=== PATIENT | female | born 1990 | race Caucasian/White ===

== ENCOUNTER 2020-12-13 17:49 | Outpatient (CLI) | payer OTHER, SELFPAY ==
[2020-12-13 18:41] LABS: Alanine Aminotransferase 20 U/L (4-35); Alkaline Phosphatase 117 U/L (38-126); Anion Gap 6 mmol/L (8-16); Aspartate Amino Transferase 31 U/L (14-36); Bilirubin,Total 0.1 mg/dL (0.2-1.3); Blood Urea Nitrogen 12 mg/dL (7-17); Calcium 9.6 mg/dL (8.4-10.2); Carbon Dioxide 25 mmol/L (22-30); Chloride 107 mmol/L (98-107); Estimated Glomerular Filt Rate > 60; Glucose 77 mg/dL (65-105); Sodium 138 mmol/L (137-145)
[2020-12-20 12:33] LABS: Chenodeoxycholic Acid 1.5 umol/L (< OR = 3.9); Cholic Acid 1.2 umol/L (< OR = 2.8); Deoxycholic Acid 1.6 umol/L (< OR = 2.3); Total Bile Acids 4.3 umol/L (< OR = 8.3)
== END 2020-12-13 17:50 | disposition home or self-care (01) ==
LOC: ANHLAB 17:54
PROVIDERS: Visit Provider Obstetrics & Gynecology
DX: O26.619 Liver and biliary tract disorders in pregnancy, unspecified trimester (principal); Z3A.00 Weeks of gestation of pregnancy not specified
CPT/HCPCS: 36415; 80053; 82542

== ENCOUNTER 2021-02-28 18:13 | Observation (INO) | payer OTHER, MEDICAID, SELFPAY ==
[2021-02-28 18:40] VITALS: BMI 24.0
--- NOTE | 2021-02-28 19:38 | OBADM ---
This patient, Cleopatra Joe, admitted to the OB room Labor/Delivery/Recovery 103 for observation. Patient/family oriented to hospital policies and general routines including ID bracelet, bed and alarms, visiting hours, pain management, procedures, bathroom and other care routines, personal items, smoking policy, room service/diet, and visiting hours. Patient/Family are encouraged to report perceived risks to care and to ask questions if they do not understand what they are told or what they should do.
--- NOTE | 2021-02-28 20:02 | PC.NURSE ---
1902 - Dr Lew notified of maternal/ status; negative ROMplus, closed/thick/high, 1 variable, 3 contractions with irritability, and reactive tracing. Orders to d/c pt home. 1904 - FHT 135 with moderate variability noted. 1 variable noted. 3 contractions noted with irritability. Abdomen soft to palpation.
--- NOTE | 2021-03-21 20:16 | PM.OBTRLD ---
OB - Triage/Final Diagnosis Visit Information Comments/Additional reasons for admission: I have assessed the risk for this patient, Cleopatra Joe, and determined that she would benefit from observation care. Final Diagnosis (1) Vaginal discharge during in third trimester: Code(s): O26.893 - Other specified related conditions, third trimester; N89.8 - Other specified noninflammatory disorders of vagina Status: Acute
== END 2021-02-28 19:29 | disposition home or self-care (01) ==
PROVIDERS: Admitting Provider Obstetrics & Gynecology; Visit Provider Obstetrics & Gynecology
DX: O26.893 Other specified pregnancy related conditions, third trimester (principal); N89.8 Other specified noninflammatory disorders of vagina; Z3A.37 37 weeks gestation of pregnancy
CPT/HCPCS: G0378; G0379

== ENCOUNTER 2021-03-09 13:32 | Outpatient (CLI) | payer OTHER, MEDICAID, SELFPAY ==
--- NOTE | 2021-03-09 13:32 | OBADM ---
This patient, Cleopatra Joe, admitted to the OB room OB Post 116 for observation. Patient/family oriented to hospital policies and general routines including ID bracelet, bed and alarms, visiting hours, pain management, procedures, bathroom and other care routines, personal items, smoking policy, room service/diet, and visiting hours. Patient/Family are encouraged to report perceived risks to care and to ask questions if they do not understand what they are told or what they should do.
--- NOTE | 2021-03-09 13:52 | PC.NURSE ---
called Meli CNM reported pt admission for decreased movement, occasional headache, swelling on legs and hands. pt states headaches are only occasional and did not required medication. no swelling on legs or hands at this time.denies epigastric pain or short of breath. order received for HIP evaluation lab.
[2021-03-09 14:15] VITALS: BP 106/72; PULSE 84
[2021-03-09 14:22] LABS: Basophils Absolute Auto 0.1 K/mm3 (0.0-0.1); Basophils Percent Auto 0.4 % (0.2-1.2); Eosinophils Absolute Auto 0.1 K/mm3 (0-0.3); Hematocrit 32.5 % (37.0-47.0); Hemoglobin 10.9 g/dL (12.0-15.0); Immature Granulocyte Absolute 0.17 K/mm3 (0.00-0.031); Immature Granulocyte Percent A 1.4 % (0-0.5); Lymphocytes Absolute Auto 1.34 K/mm3 (0.9-3.2); Lymphocytes Percent Auto 10.9 % (18.3-44.2); Mean Corpuscular HGB Conc 33.5 g/dl (32-36); Mean Corpuscular Hemoglobin 32.2 pg (26-34); Mean Corpuscular Volume 95.9 fl (80-100); Mean Platelet Volume 11.1 fl (7.4-10.4); Monocytes Absolute Auto 1.1 K/mm3 (0.1-0.6); Monocytes Percent Auto 8.8 % (2.6-8.5); Neutrophils Absolute Auto 9.5 K/mm3 (1.3-6.7); Neutrophils Percent Auto 77.5 % (45.5-73.1); Platelet Count Result 143 k/mm3 (150-375); Red Blood Count 3.39 M/mm3 (4.2-5.4); White Blood Count 12.3 K/mm3 (4.5-10.0)
[2021-03-09 14:30] VITALS: BP 107/70; PULSE 81
[2021-03-09 14:32] LABS: Add Urine Microscopic? YES; Appearance Urine Cloudy (Clear); Bacteria Urine 2+ /hpf; Bilirubin Urine Negative (Negative); Blood Urine Negative (Negative); Color Urine Yellow (Yellow); Glucose Urine UA Negative (Negative); Ketones Urine Negative (Negative); Leukocyte Esterase Ur 3+ LEU/UL (NEGATIVE); Nitrate Urine Negative (Negative); Protein Urine Negative (Negative); Squamous Epithelial Cell Urine Many /hpf (Few); Total Protein Urine Random 17 mg/dL; Ur Ttl Prot Creatinine Ratio 0.85 mg/mg (0-0.20); Urobilinogen Urine Negative mg/dL (<2.0); WBC Urine 31-50 /hpf (0-3)
[2021-03-09 14:35] LABS: Alanine Aminotransferase 14 U/L (4-35); Albumin Level 3.4 g/dL (3.5-5.1); Alkaline Phosphatase 244 U/L (38-126); Anion Gap 6 mmol/L (8-16); Aspartate Amino Transferase 30 U/L (14-36); Bilirubin,Total < 0.1 mg/dL (0.2-1.3); Blood Urea Nitrogen 8 mg/dL (7-17); Calcium 9.5 mg/dL (8.4-10.2); Carbon Dioxide 22 mmol/L (22-30); Chloride 102 mmol/L (98-107); Estimated Glomerular Filt Rate > 60; Glucose 96 mg/dL (65-110); Potassium 3.6 mmol/L (3.4-5.0); Sodium 130 mmol/L (137-145)
[2021-03-09 14:45] VITALS: BP 109/76; PULSE 82; PULSE 89
[2021-03-09 14:52] LABS: Specific Grav Ur 1.004 (1.001-1.035)
--- NOTE | 2021-03-09 14:56 | PC.NURSE ---
called Teodora Brink CNM with lab result. low PLT and elevated P/C ratio.order received to start 24 hour urine. may discharge home and repeat HIP lab tomorrow as turning in for 24 hour urine.
--- NOTE | 2021-03-09 15:20 | PC.NURSE ---
24 hour urine collection instruction given. discussed possible induction depend on PIH lab result tomorrow. pt verbalized understanding.
[2021-03-09 15:29] LABS: Creatinine Urine 20.1 mg/dL
== END 2021-03-09 15:30 | disposition home or self-care (01) ==
LOC: ANHOBOP 14:00 → ANHOBPP 14:01
PROVIDERS: Advanced Practice Midwife; Referring Provider Advanced Practice Midwife; Visit Provider Advanced Practice Midwife
DX: O13.9 Gestational [pregnancy-induced] hypertension without significant proteinuria, unspecified trimester (principal); Z3A.00 Weeks of gestation of pregnancy not specified
CPT/HCPCS: 36415; 59025; 80053; 81001; 82570; 84156; 84550; 85025; 87086; 99199

== ENCOUNTER 2021-03-10 15:45 | Inpatient (IN) | payer OTHER, MEDICAID, SELFPAY ==
[2021-03-10] VITALS (16 sets, daily range): BP systolic 101–127; BP diastolic 62–81; PULSE 71–98; TEMP 36.7–36.8; BMI 24.2
[2021-03-10 16:59] LABS: Basophils Absolute Auto 0.1 K/mm3 (0.0-0.1); Basophils Percent Auto 0.3 % (0.2-1.2); Eosinophils Absolute Auto 0.1 K/mm3 (0-0.3); Eosinophils Percent Auto 0.6 % (0-4.4); Hematocrit 33.4 % (37.0-47.0); Hemoglobin 11.4 g/dL (12.0-15.0); Immature Granulocyte Absolute 0.15 K/mm3 (0.00-0.031); Lymphocytes Absolute Auto 1.63 K/mm3 (0.9-3.2); Lymphocytes Percent Auto 11.3 % (18.3-44.2); Mean Corpuscular HGB Conc 34.1 g/dl (32-36); Mean Corpuscular Hemoglobin 32.2 pg (26-34); Mean Corpuscular Volume 94.4 fl (80-100); Mean Platelet Volume 11.3 fl (7.4-10.4); Monocytes Absolute Auto 1.1 K/mm3 (0.1-0.6); Monocytes Percent Auto 7.7 % (2.6-8.5); Neutrophils Absolute Auto 11.4 K/mm3 (1.3-6.7); Neutrophils Percent Auto 79.1 % (45.5-73.1); Platelet Count Result 156 k/mm3 (150-375); Red Blood Count 3.54 M/mm3 (4.2-5.4); Red Cell Distribution Width 12.9 % (11.5-14.5); White Blood Count 14.4 K/mm3 (4.5-10.0)
[2021-03-10 17:11] LABS: Alanine Aminotransferase 15 U/L (4-35); Albumin Level 3.6 g/dL (3.5-5.1); Alkaline Phosphatase 259 U/L (38-126); Anion Gap 5 mmol/L (8-16); Aspartate Amino Transferase 32 U/L (14-36); Bilirubin,Total 0.4 mg/dL (0.2-1.3); Blood Urea Nitrogen 10 mg/dL (7-17); Calcium 9.8 mg/dL (8.4-10.2); Carbon Dioxide 22 mmol/L (22-30); Chloride 107 mmol/L (98-107); Estimated CRCL calculation 97 ml/min; Estimated Glomerular Filt Rate > 60; Glucose 87 mg/dL (65-110); Potassium 3.7 mmol/L (3.4-5.0); Sodium 134 mmol/L (137-145)
[2021-03-10 17:13] LABS: Uric Acid 5.3 mg/dL (2.5-7.5)
[2021-03-10 17:13] LABS: Total Protein Urine Random 18 mg/dL
[2021-03-10 17:14] LABS: Creatinine Urine 55.8 mg/dL
[2021-03-10 17:39] LABS: Creatinine 24 Hour Urine 1.2 gm/24 (0.8-1.8); Total Protein Urine 24 Hr 396 mg/24hr (28-141); Total Volume 24 Hour Urine 2200 ml
[2021-03-10] MEDS: LACTATED RINGERS 1,000 ML 125 ML IV CONT (18:59)
[2021-03-10] MEDS: OXYTOCIN 30 UNITS/NS 500 ML 30 UNITS/500 ML BAG IV CONT (18:59)
--- NOTE | 2021-03-10 19:04 | LDADM ---
This patient, Cleopatra Joe, was admitted to Labor/Delivery/Recovery 105 on 03/10/21 at 15:45. Plans for labor, pain management and were discussed with patient. Patient/family oriented to hospital policies and general routines including ID bracelet, bed and alarms, visiting hours, pain management, procedures, bathroom and other care routines, personal items, smoking policy, room service/diet and guest tray routines, security routines, call light and visiting hours. Patient/Family are encouraged to report perceived risks to care and to ask questions if they do not understand what they are told or what they should do. See OBIX for further documentation.
[2021-03-11] VITALS (21 sets, daily range): BP systolic 99–119; BP diastolic 59–85; PULSE 64–96; RESP 16; TEMP 36.4–37.3; O2SAT 99
[2021-03-11] MEDS: fentaNYL CITRATE INJ (*CRX) 100 MCG/2 ML VIAL IV PUSH ×2 (04:47→06:22)
--- NOTE | 2021-03-11 05:21 | WPDANESEPP ---
Anes - Eval Pre Procedure Procedure: Labor epidural Date/Time: 03/11/21 05:21 Surgeon: Louann Preop Diagnosis: Abd pain with contractions Pre Op Diagnosis: IOL Patient Data Age: 30 Gender: F Height: 1.6 m Weight: 62 kg Last Vital Signs Temp 97.5 F L 03/11/21 04:12 Pulse 75 03/11/21 05:01 BP 116/65 03/11/21 05:01 Allergies Allergy/AdvReac Type Severity Reaction Status Date / Time No Known Allergies Allergy Verified 03/10/21 16:29 Home Medications Medication Instructions Recorded Confirmed Type ferrous sulfate 325 mg PO DAILY 02/22/21 03/10/21 History prenat.vits,anthony,[id number]-[id number] 1 tablet PO DAILY 02/22/21 03/10/21 History Laboratory Tests 03/10/21 03/10/21 03/10/21 16:36 16:36 16:36 WBC 14.4 K/mm3 H K/mm3 (4.5-10.0) RBC 3.54 M/mm3 L M/mm3 (4.2-5.4) Hgb 11.4 g/dL L g/dL (12.0-15.0) Hct 33.4 % L % (37.0-47.0) MCV 94.4 fl fl (80-100) MCH 32.2 pg pg (26-34) MCHC 34.1 g/dl g/dl (32-36) RDW 12.9 % % (11.5-14.5) Plt Count 156 k/mm3 k/mm3 (150-375) MPV 11.3 fl H fl (7.4-10.4) Immature Gran % (Auto) 1.0 % H % (0-0.5) Neut % (Auto) 79.1 % H % (45.5-73.1) Lymph % (Auto) 11.3 % L % (18.3-44.2) [place] % (Auto) 7.7 % % (2.6-8.5) Eos % (Auto) 0.6 % % (0-4.4) Baso % (Auto) 0.3 % % (0.2-1.2) Lymph # (Auto) 1.63 K/mm3 K/mm3 (0.9-3.2) [place] # (Auto) 1.1 K/mm3 H K/mm3 (0.1-0.6) Eos # (Auto) 0.1 K/mm3 K/mm3 (0-0.3) Baso # (Auto) 0.1 K/mm3 K/mm3 (0.0-0.1) Abs Immat Gran (auto) 0.15 K/mm3 H K/mm3 (0.00-0.031) Absolute Neuts (auto) 11.4 K/mm3 H K/mm3 (1.3-6.7) Absolute Nucleated RBC 0.0 K/mm3 K/mm3 (0.0-0.012) Nucleated RBC % 0.0 % % (0.0-0.2) Sodium Potassium Chloride Carbon Dioxide Anion Gap BUN Creatinine Estim Creat Clear Calc Estimated GFR Glucose Uric Acid 5.3 mg/dL mg/dL (2.5-7.5) Calcium Total Bilirubin AST ALT Alkaline Phosphatase Total Protein Albumin U Random Total Protein Ur 24 Hour Volume Urine Creatinine Ur Creatinine 24 Hour Ur Total Protein 24 Hr RPR Pending Blood Type Antibody Screen 03/10/21 03/10/21 03/10/21 16:36 16:36 16:56 WBC RBC Hgb Hct MCV MCH MCHC RDW Plt Count MPV Immature Gran % (Auto) Neut % (Auto) Lymph % (Auto) [place] % (Auto) Eos % (Auto) Baso % (Auto) Lymph # (Auto) [place] # (Auto) Eos # (Auto) Baso # (Auto) Abs Immat Gran (auto) Absolute Neuts (auto) Absolute Nucleated RBC Nucleated RBC % Sodium 134 mmol/L L mmol/L (137-145) Potassium 3.7 mmol/L mmol/L (3.4-5.0) Chloride 107 mmol/L mmol/L (98-107) Carbon Dioxide 22 mmol/L mmol/L (22-30) Anion Gap 5 mmol/L L mmol/L (8-16) BUN 10 mg/dL mg/dL (7-17) Creatinine 0.60 mg/dL L mg/dL (0.7-1.0) Estim Creat Clear Calc 97 ml/min ml/min Estimated GFR > 60 (59 - ) Glucose 87 mg/dL mg/dL (65-110) Uric Acid Calcium 9.8 mg/dL mg/dL (8.4-10.2) Total Bilirubin 0.4 mg/dL mg/dL (0.2-1.3) AST 32 U/L U/L (14-36) ALT 15 U/L U/L (4-35) Alkaline Phosphatase 259 U/L H U/L (38-126)
[2021-03-11] MEDS: miSOPROStol 200 MCG TABLET 1000 MCG RECTAL (06:15)
[2021-03-11] MEDS: OXYTOCIN 30 UNITS/NS 500 ML 30 UNITS/500 ML BAG 125 UNITS IV CONT (06:19)
--- NOTE | 2021-03-11 06:39 | WPDOBADMIT ---
Obstetrics - Admit Note Admission Note: record reviewed. No pertinent additions to the history and/or any subsequent changes in the physical findings that are not consistent with the expected course of the were found. admit for GHTN, MIL Additions to the history and/or subsequent changes in the physical findings follow. None.
--- NOTE | 2021-03-11 06:39 | PM.OBPRVD ---
OB - Delivery Note Procedure Delivery date: 03/11/21 Procedure: vaginal delivery Intrapartal events: None Induction method: per pitocin protocol Delivery monitor: external FHT and external uterine Route of delivery: Laceration Description: Periurethral (left) and Perineal - 2nd Degree Delivery repair: vicryl Specimen: Yes Quantitative Blood Loss (ml): 350 Anesthesia type: Local Disposition: floor Baby Date of : 03/11/21 Time of : 05:51 Weeks of gestation at delivery: 39 gender: Female Weight (pounds): 7 Weight (ounces): 11 presentation: vertex position: Left Occiput Anterior Placenta delivery description: Spontaneous cord vessel description: 3 Vessels and Clamped/Cut Narrative: bleeding increased after repair, manual removal of blood clots, cytotec 1000mg given and fundus firm, total blood loss 350cc, mother and baby in stablel condition
[2021-03-11] MEDS: WITCH HAZEL 40 PADS 1 PAD TOPICAL (08:51)
[2021-03-11] MEDS: BENZOCAINE 20% AER SPR (*SP) 56 GM CAN 1 SPRAY TOPICAL (08:51)
[2021-03-11 09:57] LABS: Rapid Plasma Reagin Non-Reactive (NonReactive)
[2021-03-11] MEDS: ceFAZolin 2 GM/D5W 50 ML 2 GM/50 ML BAG IVPB (10:20)
--- NOTE | 2021-03-11 10:25 | PC.NURSE ---
Patient transferred to post room #285 per wheelchair from labor and delivery. Support person present. Oriented to unit, room, information board, rooming in, admission packet and security measures. Patient verbalizes understanding.
[2021-03-11] MEDS: DOCUSATE SODIUM 100 MG CAPSULE PO (19:25)
[2021-03-12] VITALS: BP 107/68; PULSE 76; RESP 16; TEMP 36.4; O2SAT 99
[2021-03-12 04:30] VITALS: BP 100/64; PULSE 81; RESP 16; TEMP 36.7; O2SAT 99
[2021-03-12 04:52] LABS: Hematocrit 27.2 % (37.0-47.0)
--- NOTE | 2021-03-12 07:51 | PM.OBPNVD ---
OB - PN: Subj Subjective Date/time seen: 03/12/21 07:51 Patient comments: no complaints baby status: doing well OB - PN: Obj Data Labs CBC & Chem 7: 03/12/21 04:16 03/10/21 16:36 Labs: Laboratory Results - last 24 hr 03/10/21 03/12/21 16:36 04:16 Hgb 9.0 L Hct 27.2 L RPR Non-reactive OB - PN A/P Plan day: 1 Plan: routine care and discharge home (Follow up in 4 weeks.) Time Spent With Patient Time: Total time spent is greater than 50% in coordination of care (as documented) at patient's floor/unit and/or counseling patient: Time with patient: less than 15 minutes Review of Systems Review of Systems: All systems reviewed & are unremarkable except as noted in HPI and below Exam Narrative: Fundus firm and vaginal flow controlled. No lower ext redness, warmth, or edema. Negative homans. Const: General: comfortable Chest: Breast/axilla inspection: normal inspection of the breasts Resp: Effort & Inspection: normal respiratory effort Cardio: Rate: regular rate GI: GI Palp: Yes Soft to palpation Psych: Appearance: grossly normal Affect: normal affect Attitude: cooperative Thought content: Yes Normal thought content present Judgement: Good judgement present (Psych)
--- NOTE | 2021-03-12 07:51 | PM.OBDSVD ---
DS: Admitting Diagnosis Admitting Diagnosis Labor OB - DS: Summary OB Procedures : None OB Procedures Intrapartum: Spontaneous Vag Delivery OB Procedures: : None Time Spent with Patient Time attestation: Total time spent providing and/or coordinating discharge services: DS: Data Data Completed and Pending Labs on day of discharge: Labs from last 24 hours 03/12/21 03/10/21 04:16 16:36 Hgb 9.0 L Hct 27.2 L RPR Non-reactive Discharge Plan Discharge Attending physician on discharge: Lacey Baird Discharging Clinician: Marla Brink Patient Disposition: Home, Self-Care Activity: pelvic rest Diet: as tolerated Patient Instructions: Antibiotic Form Stand Alone Forms: General Discharge Information Follow-up/Referrals: Lacey Baird CNM [Certified Nurse Deputy General Counsel] - Discharge Medications: Continued ferrous sulfate 325 mg (65 mg iron) Tablet,Delayed Release (Dr/Ec) 325 mg PO DAILY RF: 0 prenat.vits,anthony,[id number]-[id number] Tablet 1 tablet PO DAILY RF: 0 Date of admission: 03/10/21 15:45 Primary Care Provider: PHYSICIAN,FIBREGLASS LAMINATOR Admitting Provider: Suresh Lew Attending physician on admission: Suresh Lew Condition: Stable
[2021-03-12 09:00] VITALS: BP 100/62; PULSE 87; RESP 18; TEMP 36.4; O2SAT 100
--- NOTE | 2021-03-12 09:00 | PC.NURSE ---
PT introductions made and plan of care discussed per post , pain management, bottle feeding, daily care activities. PT and mother both recipients of instructions. Pt received instructions per one to one discussion, mom baby care guide, and demonstration. PT has no barriers to learning at this time. PT verbalized understanding of such care.
[2021-03-12] MEDS: DOCUSATE SODIUM 100 MG CAPSULE PO ×2 (10:48→17:59)
[2021-03-12] MEDS: IBUPROFEN 600 MG TABLET PO ×2 (10:49→18:00)
[2021-03-12] MEDS: ACETAMINOPHEN 325 MG TABLET 650 MG PO ×2 (10:50→18:01)
[2021-03-12] MEDS: POLYSACCHARIDE IRON COMPLEX 150 MG CAPSULE PO ×2 (10:50→18:00)
[2021-03-12 11:00] VITALS: BP 106/64; PULSE 80; RESP 16; TEMP 36.6; O2SAT 100
[2021-03-12 18:00] VITALS: BP 99/66; PULSE 82
[2021-03-12 19:03] VITALS: BP 101/61; PULSE 77; RESP 16; TEMP 36.3; O2SAT 97
[2021-03-13] VITALS: BP 106/72; PULSE 78
[2021-03-13 04:30] VITALS: BP 115/73; PULSE 68
--- NOTE | 2021-03-13 07:41 | PM.OBPNVD ---
OB - PN: Subj Subjective Date/time seen: 03/13/21 07:41 Patient comments: no complaints baby status: doing well [place] feeding status: exclusively bottle feeding OB - PN: Obj Data Labs CBC & Chem 7: 03/12/21 04:16 03/10/21 16:36 OB - PN A/P Plan day: 2 Plan: routine care and discharge home Time Spent With Patient Time: Total time spent is greater than 50% in coordination of care (as documented) at patient's floor/unit and/or counseling patient: Review of Systems Review of Systems: All systems reviewed & are unremarkable except as noted in HPI and below Exam Const: General: cooperative Orientation/consciousness: patient oriented x3 Psych: Attitude: cooperative Thought process: Normal thought process present Thought content: Yes Normal thought content present Insight: Good insight present (Psych)
--- NOTE | 2021-03-13 07:43 | P.DS_ITS ---
DS: Admitting Diagnosis Admitting Diagnosis MIL OB - DS: Summary OB Procedures : None OB Procedures Intrapartum: Spontaneous Vag Delivery OB Procedures: : None Time Spent with Patient Time attestation: Total time spent providing and/or coordinating discharge services: Discharge Plan Discharge Attending physician on discharge: Lacey Baird Discharging Clinician: Marla Brink Patient Disposition: Home, Self-Care Activity: pelvic rest Diet: as tolerated Patient Instructions: Antibiotic Form Stand Alone Forms: General Discharge Information Follow-up/Referrals: Lacey Baird CNM [Certified Nurse Guidance Secretary] - Discharge Medications: Continued ferrous sulfate 325 mg (65 mg iron) Tablet,Delayed Release (Dr/Ec) 325 mg PO DAILY RF: 0 prenat.vits,anthony,[id number] Tablet 1 tablet PO DAILY RF: 0 Date of admission: 03/10/21 15:45 Primary Care Provider: PHYSICIAN,GLASSWARE SELECTOR Admitting Provider: Suresh Lew Attending physician on admission: Suresh Lew Condition: Stable
--- NOTE | 2021-03-13 08:00 | PC.NURSE ---
PT introductions made and plan of care discussed per post , pain management, bottle feeding, daily care activities and pending discharge to home. PT and mother both recipients of instructions. Pt received instructions per one to one discussion, mom baby care guide, and demonstration. PT has no barriers to learning at this time. PT verbalized understanding of such care.
[2021-03-13 08:10] VITALS: BP 111/76; PULSE 70; RESP 18; TEMP 36.6; O2SAT 100
[2021-03-13 10:00] VITALS: PULSE 70; RESP 18; O2SAT 100
[2021-03-13] MEDS: POLYSACCHARIDE IRON COMPLEX 150 MG CAPSULE PO (10:04)
[2021-03-13] MEDS: DOCUSATE SODIUM 100 MG CAPSULE PO (10:04)
--- NOTE | 2021-03-13 11:30 | PC.NURSE ---
PT received discharge instructions per protocol and verbalized understanding of such care.
--- NOTE | 2021-03-13 11:50 | PC.NURSE ---
PT discharged to home ambulatory accompanied by mother and and taken to waiting car. follow up appts confirmed.
[2021-03-14 14:44] VITALS: BP 117/79; PULSE 86; RESP 20; TEMP 36.9; O2SAT 100
== END 2021-03-13 11:50 | disposition home or self-care (01) | DRG 807 ==
LOC: ANHLDR 16:00 → ANHOB2 03-11 10:48
PROVIDERS: Advanced Practice Midwife; Admitting Provider Obstetrics & Gynecology; Visit Provider Obstetrics & Gynecology
DX: O13.4 Gestational [pregnancy-induced] hypertension without significant proteinuria, complicating childbirth (principal); Z37.0 Single live birth; Z3A.39 39 weeks gestation of pregnancy; O70.1 Second degree perineal laceration during delivery; O62.3 Precipitate labor; O72.1 Other immediate postpartum hemorrhage
CPT/HCPCS: 36415; 80053; 81050; 82570; 84156; 84550; 85014; 85018; 85025; 86592; 86850; 86900; 86901; A9270; J0690; J2590; J2795; J3010; J7120